=== PATIENT | male | born 1970 | race Caucasian/White ===

== ENCOUNTER 2024-05-28 10:06 | Outpatient (CLI) | payer OTHER, SELFPAY ==
--- NOTE | 2024-05-28 10:21 | XR_ITS ---
WS: [email or web address] Right knee, 3 views, 05/28/2024 Clinical Data: BILATERAL KNEE PAIN Comparison: None. Findings: No fractures or dislocations are seen. The joint spaces are normal. The patella is intact. The soft tissues are unremarkable. XR/XR knee RT 3V* [id number] Impression: Negative right knee.
--- NOTE | 2024-05-28 10:21 | XR_ITS ---
WS: [email or web address] Lumbar spine, 4 views including both obliques, 05/28/2024 Clinical Data: LBP Comparison: None. Findings: No compression fractures or subluxation is seen. No disc space narrowing is seen. The transverse processes and SI joints are normal. The oblique images show no spondylolysis. There is calcification in the wall of the abdominal aorta but no aneurysm. XR/XR lumbar spine min 4V [id number] Impression: 1. Negative lumbar spine. 2. No spondylolysis on oblique images.
--- NOTE | 2024-05-28 10:21 | XR_ITS ---
WS: [email or web address] Cervical spine, 3 views, 05/28/2024 Clinical Data: CSPINE PAIN Comparison: None. Findings: No compression fractures are seen. There is minimal disc narrowing at C5-C6 with anterior and posterior osteophytes. There is no prevertebral soft tissue swelling. The odontoid is unremarkable. The soft tissues of the neck and the lung apices are normal. There is a right internal jugular venous infusion catheter. XR/XR cervical spine 3V* [id number] Impression: Minimal degenerative disc narrowing at C5-C6 with small osteophytes.
--- NOTE | 2024-05-28 10:21 | XR_ITS ---
WS: [email or web address] Left knee, 3 views, 05/28/2024 Clinical Data: BILATERAL KNEE PAIN Comparison: None. Findings: No fractures or dislocations are seen. The joint spaces are normal. The patella is intact. The soft tissues are unremarkable. XR/XR knee LT 3V* [id number] Impression: Negative left knee.
--- NOTE | 2024-05-28 10:21 | XR_ITS ---
WS: [email or web address] Thoracic spine, 3 views, 05/28/2024 Clinical Data: TSPINE PAIN Comparison: None. Findings: No compression fractures are seen. The disc heights are normal. The paravertebral regions are normal. There is an infusion catheter entering the right internal jugular vein and ending in the superior vena cava XR/XR thoracic spine 3V* [id number] Impression: Negative thoracic spine.
--- NOTE | 2024-05-28 10:21 | XR_ITS ---
WS: [email or web address] Left hip, 3 views, AP pelvis, 05/28/2024 Clinical Data: BILATERAL HIP PAIN Comparison: None. Findings: No fractures or dislocations are seen. The left hip shows no erosion, narrowing, sclerosis, cyst formation or fragmentation of the left femoral head. Right hip is normal. The soft tissues are not remarkable. The adjacent pelvis is normal. XR/XR hip LT 4V wo/w pel [id number] Impression: Negative pelvis and left hip.
--- NOTE | 2024-05-28 10:21 | XR_ITS ---
WS: [email or web address] Left ankle, AP and lateral views, 05/28/2024 Clinical Data: BILATERAL ANKLE PAIN Comparison: None. Findings: No fractures or dislocations are seen. The ankle mortise is normal. The talus and calcaneus are unremarkable. No soft tissue swelling over the medial or lateral malleolus is seen. XR/XR ankle LT 2V [id number] Impression: Negative left ankle.
--- NOTE | 2024-05-28 10:21 | XR_ITS ---
WS: [email or web address] Right ankle, AP and lateral views, 05/28/2024 Clinical Data: BILATERAL ANKLE PAIN Comparison: None. Findings: No fractures or dislocations are seen. The ankle mortise is normal. The talus and calcaneus are unremarkable. No soft tissue swelling over the medial or lateral malleolus is seen. XR/XR ankle RT 2V [id number] Impression: Negative right ankle.
--- NOTE | 2024-05-28 10:21 | XR_ITS ---
WS: [email or web address] Right hip, 3 views, 05/28/2024 Clinical Data: BILATERAL HIP PAIN Comparison: None Findings: No fractures or dislocations are seen. The hip joint is intact. No narrowing, sclerosis, erosion, cyst formation or fragmentation of the right femoral head is seen. The soft tissues are not remarkable. The adjacent pelvis is normal. XR/XR hip RT 4V wo/w pel [id number] Impression: Negative right hip.
--- NOTE | 2024-05-28 10:21 | XR_ITS ---
WS: [email or web address] Sinus series PA and lateral images, 05/28/2024 Clinical Data: SINUSITIS Comparison: None. Findings: The sinuses are clear. There are no air-fluid levels. No bone destruction or erosion is seen. The orbits are normal. XR/XR sinus <3V 31083 Impression: Negative sinus series.
== END 2024-05-28 10:07 | disposition home or self-care (01) ==
LOC: RAD 10:14
PROVIDERS: Visit Provider Nurse Practitioner Family
DX: M25.572 Pain in left ankle and joints of left foot (principal); M25.571 Pain in right ankle and joints of right foot; M54.2 Cervicalgia; M25.552 Pain in left hip; M25.551 Pain in right hip; M25.562 Pain in left knee; M25.561 Pain in right knee; M54.50 Low back pain, unspecified; J32.9 Chronic sinusitis, unspecified; M54.6 Pain in thoracic spine; Z96.89 Presence of other specified functional implants; I70.0 Atherosclerosis of aorta; M25.78 Osteophyte, vertebrae
CPT/HCPCS: 70210; 72040; 72072; 72110; 73503; 73562; 73600